=== PATIENT | female | born 1995 | race Caucasian/White ===

== ENCOUNTER 2024-02-25 18:17 | Emergency (ER) | payer OTHER, SELFPAY | END 2024-02-25 18:46 | disposition left against medical advice (07) | PROVIDERS: Emergency Provider Emergency Medicine | DX: T14.8XXA Other injury of unspecified body region, initial encounter (principal); W55.03XA Scratched by cat, initial encounter; Y93.9 Activity, unspecified; Y92.9 Unspecified place or not applicable; Y99.9 Unspecified external cause status; Z53.21 Procedure and treatment not carried out due to patient leaving prior to being seen by health care provider ==